=== PATIENT | male | born 1995 | race American Indian/Alaskan Native ===

== ENCOUNTER 2022-02-26 19:28 | Emergency (ER) | payer SELFPAY ==
[2022-02-27 01:15] LABS: Hematocrit 43.7 % (35.5-45.6); Hemoglobin 14.5 gm/dl (11.8-15.2); Mean Corpuscular HGB Conc 33 % (32-34); Mean Corpuscular Volume 85 fl (84-94); Platelet Count 195 K/mm3 (140-440); Red Blood Count 5.16 M/mm3 (3.65-5.03); Red Cell Distribution Width 13.8 % (13.2-15.2)
[2022-02-27 01:40] LABS: Alanine Aminotransferase 20 units/L (7-56); Albumin 4.8 g/dL (3.9-5); BUN/Creatinine Ratio 11; Blood Urea Nitrogen 9 mg/dL (9-20); Hemolysis Index 6
[2022-02-27 01:56] LABS: Amphetamine Screen,Urine PRESUMPTIVE NEGATIVE; Benzodiazepines Screen,Urine PRESUMPTIVE NEGATIVE; Cannabinoid Screen,Urine PRESUMPTIVE NEGATIVE; Cocaine Screen,Urine PRESUMPTIVE NEGATIVE; Methadone Screen,Urine PRESUMPTIVE NEGATIVE; Opiate Screen,Urine PRESUMPTIVE NEGATIVE
[2022-02-27 03:19] LABS: Anisocytosis 1+; Basophils % (Manual) 0 % (0.0-1.8); Eosinophils % (Manual) 0 % (0.0-4.3); Platelet Estimate Consistent w Auto; Total Cells Counted 100
[2022-02-27 04:37] VITALS: BP 118/81
--- NOTE | 2022-02-27 05:56 | Emergency Department Report ---
History of Present Illness - General Chief Complaint: Overdose Stated Complaint: OVERDOSE ON MEDS Source: patient Mode of arrival: Ambulatory Limitations: No Limitations - History of Present Illness Initial Comments: Patient is a 26-year-old -[place] male with no past medical history except recurrent dental pains who presented to the ED for evaluation after he accidentally took 3 tablets of Tylenol with codeine medications for pain. Patient states that he took this medication about 16 hours ago and fell asleep and when he woke up he was still very groggy and decided to contact the poison control. Patient states that he was told to drink a lot of fluids and to come to the ED for evaluation. Patient also states that he has been taking previously prescribed oral antibiotics for his dental abscess but that the pain has been constant and persistent and the only reason why took the Tylenol #3 tablets was to control his pain. Patient denies suicidal ideation, suicidal attempt, hallucinations, nausea and vomiting, abdominal pain, chest pain or shortness of breath, dizziness, syncope, palpitations, diarrhea, change in vision, hematuria, testicular pain or dysuria. MD Complaint: accidental overdose, other (Accidentally took 3 Tylenol with codeine tablets for tooth ache over 12 hours ago) -: hour(s) (16) Intent: other (Dental pain) How Overdose Was Discovered: other (Personally contacted the poison control and was advised to come to the ED for evaluation.) Context: Intentional Overdose: other Context: Accidental Overdose: medication error (Dental pain) Associated Symptoms: other (Dental pain) Treatments Prior to Arrival: none - Related Data Allergies Allergy/AdvReac Type Severity Reaction Status Date / Time No Known Allergies Allergy Unverified 02/26/22 19:53 ED Review of Systems ROS: Stated complaint: OVERDOSE ON MEDS Other details as noted in HPI Constitutional: denies: chills, fever Eyes: denies: eye pain, eye discharge, vision change ENT: dental pain (Dental pain). denies: ear pain, throat pain Respiratory: denies: cough, shortness of breath, wheezing Cardiovascular: denies: chest pain, palpitations Endocrine: no symptoms reported Gastrointestinal: denies: abdominal pain, nausea, vomiting, diarrhea Genitourinary: denies: urgency, dysuria Musculoskeletal: denies: back pain, joint swelling, arthralgia Skin: denies: rash, lesions Neurological: denies: headache, weakness, paresthesias Psychiatric: denies: anxiety, depression Hematological/Lymphatic: denies: easy bleeding, easy bruising ED Past Medical Hx - Past Medical History Previous Medical History?: No - Surgical History Past Surgical History?: No - Social History Smoking Status: Never Smoker ED Physical Exam - General Limitations: No Limitations General appearance: alert, in no apparent distress - Head Head exam: Present: atraumatic, normocephalic, normal inspection - Eye Eye exam: Present: normal appearance, PERRL, EOMI Pupils: Present: normal accommodation - ENT ENT exam: Present: normal exam, normal orophraynx, mucous membranes moist, TM's normal bilaterally, normal external ear exam - Neck Neck exam: Present: normal inspection, full ROM. Absent: tenderness - Respiratory Respiratory exam: Present: normal lung sounds bilaterally. Absent: respiratory distress, wheezes, rales, rhonchi, stridor, chest wall tenderness, accessory muscle use, decreased breath sounds, prolonged expiratory - Cardiovascular Cardiovascular Exam: Present: regular rate, normal rhythm, normal heart sounds. Absent: systolic murmur, diastolic murmur, rubs, gallop - GI/Abdominal GI/Abdominal exam: Present: soft, normal bowel sounds. Absent: distended, tenderness, guarding, rebound, rigid, hyperactive bowel sounds, organomegaly, mass - Rectal Rectal exam: Present: deferred - Extremities Exam Extremities exam: Present: normal inspection, full ROM, normal capillary refill. Absent: tenderness, pedal edema, joint swelling - Back Exam Back exam: Present: normal inspection, full ROM. Absent: tenderness, CVA tenderness (R), CVA tenderness (L), muscle spasm, paraspinal tenderness, vertebral tenderness - Neurological Exam Neurological exam: Present: alert, oriented X3, CN II-XII intact, normal gait, reflexes normal - Psychiatric Psychiatric exam: Present: normal affect, normal mood - Skin Skin exam: Present: warm, dry, intact, normal color. Absent: rash ED Course Vital Signs 02/26/22 02/27/22 19:55 04:36 Temperature 97.6 F Pulse Rate 82 85 Respiratory 14 16 Rate Blood Pressure 115/81 118/81 [Right] O2 Sat by Pulse 98 99 Oximetry ED Medical Decision Making - Lab Data Result diagrams: 02/27/22 00:43 02/27/22 00:43 - Medical Decision Making This is a 26-year-old -[place] male with no past medical history except recurrent dental pains who presented to the ED for evaluation after he accidentally took 3 tablets of Tylenol with codeine medications for pain. Patient states that he took this medication about 16 hours ago and fell asleep and when he woke up he was still very groggy and decided to contact the poison control. Patient states that he was told to drink a lot of fluids and to come to the ED for evaluation. Patient also states that he has been taking previously prescribed oral antibiotics for his dental abscess but that the pain has been constant and persistent and the only reason why took the Tylenol #3 tablets was to control his pain. In the ED, patient is alert and oriented x3 and is not in any distress. Patient is hemodynamically stable. All lab test results were reviewed and are all nonactionable. Patient was observed in the ED for over 8 hours and on reevaluation, patient is hemodynamically stable. Patient has not exhibited any neurological symptoms or GI symptoms. Patient was discharged home and counseled on the importance of following instruction given by the pharmacy or the provider or medication administration as far as pain control is concerned. Patient was advised to follow-up with his primary care physician in 3 to 5 days for reevaluation or return to the ED immediately if symptoms get worse. - Differential Diagnosis Dental abscess; medication overdose; anxiety Critical care attestation.: If time is entered above; I have spent that time in minutes in the direct care of this critically ill patient, excluding procedure time. ED Disposition Clinical Impression: Accidental overdose by codeine Qualifiers: Encounter type: initial encounter Qualified Code(s): T40.2X1A - Poisoning by other opioids, accidental (unintentional), initial encounter Disposition: 01 HOME / SELF CARE / HOMELESS Is pt being admited?: No Does the pt Need Aspirin: No Condition: Stable Instructions: Accidental Drug Poisoning, Adult, Opioid Overdose Additional Instructions: Follow-up with your primary care physician in 7 to 10 days for reevaluation. Return to the ED immediately if symptoms get worse. Referrals: NEYMAR LOPEZ MD [Primary Care Provider] - 3-5 Days Time of Disposition: 05:58 Print Language: BURMESE
--- NOTE | 2022-02-28 12:33 | Electrocardiograph Report ---
[facility] Test Date: 2022-02-26 Test Time: 20:19:57 Pat Name: SIERRA QIU Department: Room: Gender: M [employer] Associate: ANANDA : 1995 Requested By: SHARAN SPRAGUE Order Number: [id number] Reading MD: Tarsha Alonso Measurements Intervals [place] Rate: 83 P: 70 ND: 153 QRS: 66 QRSD: 64 T: 40 QT: 347 QTc: 409 Interpretive Statements Sinus rhythm No previous ECG available for comparison Electronically Signed On 02-28-2022 12:33:22 EDT by Tarsha Alonso
== END 2022-02-27 06:10 | disposition home or self-care (01) ==
LOC: ED 19:28
DX: T40.2X1A Poisoning by other opioids, accidental (unintentional), initial encounter (principal); Y92.89 Other specified places as the place of occurrence of the external cause
CPT/HCPCS: 36415; 80053; 80307; 80320; 85007; 85025; 93005; 99283; G0480